=== PATIENT | female | born 2005 | race Caucasian/White ===

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

== ENCOUNTER 2024-02-23 17:12 | Emergency (ER) | payer SELFPAY ==
[2024-02-23 17:20] VITALS: BP 116/81; PULSE 119; RESP 16; TEMP 37.2; O2SAT 98
--- NOTE | 2024-02-23 17:31 | XRR_ITS ---
PROCEDURE INFORMATION: Exam: XR Chest Exam date and time: 02/23/2024 5:35 PM Age: 18 years old Clinical indication: Cough; Additional info: Cough, pleuritic pain TECHNIQUE: Imaging protocol: Radiologic exam of the chest. Views: 1 view. COMPARISON: CR XR chest 1V portable [id number] 01/08/2022 1:20 PM FINDINGS: Lungs: Unremarkable. No consolidation. Pleural spaces: Unremarkable. No pleural effusion. No pneumothorax. Heart/Mediastinum: Unremarkable. No cardiomegaly. Bones/joints: Unremarkable. XR/XR chest 1V portable [id number] IMPRESSION: No acute findings.
--- NOTE | 2024-02-23 17:33 | W.ED.GENADLT ---
Documented by User: ROGERIO Mackey 02/23/24 19:02 HPI - General Adult General: Chief complaint: General Medical Stated complaint: Cp Time Seen by Provider: 02/23/24 17:20 Source: patient Mode of arrival: ambulatory Limitations: no limitations History of Present Illness: Patient is a 18-year-old female presenting to the emergency department complaining of upper respiratory symptoms for the past 3-4 days. She states her symptoms began with runny nose and congestion, associated with a sore throat. As of yesterday she has developed a cough and some pleuritic chest pain. She does note sick contacts that have had identical symptoms. She has not taken anything for her symptoms at this point. She denies noticing any fever. She denies any shortness of breath, nausea or vomiting, or any other symptoms at this time. MD complaint: Upper respiratory symptoms Onset (ago): day(s) Associated symptoms: Deny dyspnea, headache(s), nausea, rash, palpitations or vomiting Treatments prior to arrival: none Review of Systems General: Reports: 10 or more systems reviewed and unremarkable except in HPI and below Const: Denies: fever(s), chills or fatigue Eyes: Denies: change in vision ENMT: Reports: throat pain, nasal discharge and nasal congestion; Denies: ear or mastoid pain Card: Denies: palpitations, swelling of feet/ankles or lightheadedness Resp: Reports: non-productive cough and pain on inspiration; Denies: dyspnea or wheezing GI: Denies: abdominal pain, nausea, vomiting, diarrhea or constipation : Denies: flank pain, difficulty voiding, dysuria or urinary frequency Musc: Denies: neck pain, back pain or joint pain Skin/Breast: Denies: rash Neuro: Denies: headache(s), numbness in extremities or weakness in extremities PFSH ED PFSH: Medical History Aftercare following surgery of the genitourinary system No pertinent past medical history neghx: htn,dm,thyroid,dvt/pe PCP: Dr. Ramires Surgical History H/O dilation and curettage 12/31/2021- Suction D&C, performed by Dr. Zapata at [facility] No history of previous surgery Family History Denies family history of Colon cancer Ovarian cancer Diabetes Clotting disorder Heart disease Hyperlipidemia Breast cancer Anesthesia complication Bleeding disorder Hypertension Uterine cancer Thyroid disease Stroke Social History Smoking and tobacco/nicotine status: never used tobacco/nicotine Physical Exam Const: COMMON NORMALS: no acute distress and healthy appearing GENERAL APPEARANCE: cooperative, comfortable and well developed HENMT: COMMON NORMALS: normocephalic, atraumatic, hearing grossly normal bilaterally, Normal external nose present and Normal nasal mucous membranes and turbinates present HEAD & SCALP: normal to inspection, normocephalic and atraumatic FACE & SINUS: normal facial exam and sinuses nontender NOSE: Normal external nose present, Normal nares present, No nasal polyps present and Normal nasal mucous membranes and turbinates present MOUTH: Normal oral and palatal mucosa present THROAT: posterior oropharynx normal and tonsils normal Eye: COMMON NORMALS: EOMs intact bilaterally, conjunctivae normal and normal visual frias by confrontation GENERAL EYE: appearance normal, both eyes and all related structures CONJUNCTIVA: Yes conjunctivae normal Neck/C-Spine: COMMON NORMALS: full ROM, no lymphadenopathy, supple and no meningeal signs GENERAL: Yes normal visual inspection Chest: COMMONS NORMALS: normal inspection of the chest Resp: COMMON NORMALS: normal respiratory effort and clear to auscultation bilaterally EFFORT & INSPECTION: Yes able to speak in complete sentences and Yes Actively coughing AUSCULTATION: clear to auscultation bilaterally Cardio: COMMON NORMALS: regular rate, regular rhythm, S1 normal heart sound present and S2 normal heart sound present RATE: regular rate RHYTHM: regular rhythm HEART SOUNDS: S1 normal heart sound present, S2 normal heart sound present, no gallops, no murmurs and no rubs GI: COMMON NORMALS: Soft to palpation and No hepatosplenomegaly present INSPECTION: Yes normal to inspection PALPATION: Yes Soft to palpation and Yes No hepatosplenomegaly present Extremity: COMMON NORMALS: normal to inspection, full ROM and capillary refill normal Neuro: MENINGEAL SIGNS: Yes no meningeal signs Skin: COMMON NORMALS: no rashes or lesions noted GENERAL SKIN EXAM: no rashes or lesions noted Course Vital Signs: Vital signs: Vital Signs Temperature 99.0 F 02/23/24 18:51 Pulse Rate 94 02/23/24 18:51 Respiratory Rate 16 02/23/24 18:51 Blood Pressure 103/66 02/23/24 18:51 Pulse Oximetry 99 02/23/24 18:51 Oxygen Delivery Me thod Room Air 02/23/24 17:20 MDM - General Adult Medical Decision Making Patient presented with a few days of upper respiratory symptoms, with coughing and pleuritic chest pain beginning today. Heart rate elevated on arrival, rest of physical examination was unremarkable and she had normal cardiopulmonary auscultation. Her swabs for flu, COVID, and strep were all negative. Chest x-ray unremarkable. Due to patient's reported symptoms and reported sick contacts, likely she is dealing with a viral syndrome and will treat symptomatically as she has not taken anything for symptoms at this time. Strict return precautions were given and she will follow-up with primary care otherwise. Care of this patient discussed with supervising ED physician, Dr. Zambrano, who agrees with disposition. Lab Data Radiology Impressions Chest X-Ray 02/23/24 17:31 IMPRESSION: No acute findings. Laboratory Results Influenza Type A Ag negative (Negative) 02/23/24 17:51 Influenza Type B Ag negative (Negative) 02/23/24 17:51 SARS-CoV-2 Ag (Rapid) Negative (Negative) 02/23/24 17:51 Group A Strep Rapid Negative (Negative) 02/23/24 17:51 All radiology interpretation(s) finalized by discharge Discharge Plan Discharge Patient Disposition: Home Clinical Impression: Viral syndrome Condition: Stable Prescriptions: No Action acetaminophen [Tylenol] 325 mg capsule 325 mg PO QID PRN (Reason: Pain) (DME) ASO to left See Rx Instructions .Route .MEDSUPPLY Qty: 1 0RF Rx Instructions: As directed acyclovir 800 mg tablet 800 mg PO TID norgestimate-ethinyl estradiol [Sprintec (28)] 0.25-35 mg-mcg tablet 1 tab PO DAILY Qty: 28 0RF Nexplanon 68 mg implant subdermal ibuprofen 800 mg tablet See Rx Instructions .ROUTE .COMPLEX Qty: 60 0RF Dose Instruction: TAKE 1 TABLET BY MOUTH THREE TIMES DAILY NEEDED FOR PAIN Rx Instructions: TAKE 1 TABLET BY MOUTH THREE TIMES DAILY NEEDED FOR PAIN methocarbamol 750 mg tablet 750 mg PO Q6H PRN (Reason: spasms) Qty: 20 0RF Naprosyn 500 mg tablet 500 mg PO BID PRN (Reason: pain) Qty: 20 0RF ondansetron 4 mg tablet,disintegrating 4 mg PO Q6H PRN (Reason: nausea and vomiting) Qty: 14 0RF ondansetron HCl 4 mg tablet 4 mg PO Q6H PRN (Reason: nausea and vomiting) Qty: 20 0RF Discharge Orders: Discharge ED (Routine); Ordered 02/23/24 Ordered By: Jesus Sal Discharge Diet: Usual diet Discharge Activity: Increase activity as tolerated Patient Instructions: Viral Syndrome (ED) Activity Restrictions/Additional Instructions: [id number]-[id number] cough suppressant such as dextromethorphan. Add klhw-[id number]-[id number] mucolytic such as Mucinex. Plenty of fluids and contagion precaution. Tylenol or ibuprofen for any fever. Monitor for any new or worsening symptoms and return for reevaluation. Otherwise, follow-up with primary care. Stand Alone Forms: Work/School Release Print Language: Beninese Coding Level of Care Code ED Tube Skiver for Chg Fwd Documented by User: Lamont Rivero DO 02/24/24 05:15 HPI - General Adult General: Chief complaint: General Medical Stated complaint: Cp Time Seen by Provider: 02/23/24 17:20 [facility] ED PFSH: Medical History Aftercare following surgery of the genitourinary system No pertinent past medical history neghx: htn,dm,thyroid,dvt/pe PCP: Dr. Ramires Surgical History H/O dilation and curettage 12/31/2021- Suction D&C, performed by Dr. Zapata at [facility] No history of previous surgery Family History Denies family history of Colon cancer Ovarian cancer Diabetes Clotting disorder Heart disease Hyperlipidemia Breast cancer Anesthesia complication Bleeding disorder Hypertension Uterine cancer Thyroid disease Stroke Social History Smoking and tobacco/nicotine status: never used tobacco/nicotine Course Vital Signs: Vital signs: Vital Signs Temperature 99.0 F 02/23/24 18:51 Pulse Rate 94 02/23/24 18:51 Respiratory Rate 16 02/23/24 18:51 Blood Pressure 103/66 02/23/24 18:51 Pulse Oximetry 99 02/23/24 18:51 Oxygen Delivery Me thod Room Air 02/23/24 17:20 MDM - General Adult Medical Decision Making Patient presented with a few days of upper respiratory symptoms, with coughing and pleuritic chest pain beginning today. Heart rate elevated on arrival, rest of physical examination was unremarkable and she had normal cardiopulmonary auscultation. Her swabs for flu, COVID, and strep were all negative. Chest x-ray unremarkable. Due to patient's reported symptoms and reported sick contacts, likely she is dealing with a viral syndrome and will treat symptomatically as she has not taken anything for symptoms at this time. Strict return precautions were given and she will follow-up with primary care otherwise. Care of this patient discussed with supervising ED physician, Dr. Zambrano, who agrees with disposition. Chart reviewed Lab Data Radiology Impressions Chest X-Ray 02/23/24 17:31 IMPRESSION: No acute findings. Laboratory Results Influenza Type A Ag negative (Negative) 02/23/24 17:51 Influenza Type B Ag negative (Negative) 02/23/24 17:51 SARS-CoV-2 Ag (Rapid) Negative (Negative) 02/23/24 17:51 Group A Strep Rapid Negative (Negative) 02/23/24 17:51 Discharge Plan Discharge Patient Disposition: Home Clinical Impression: Viral syndrome Condition: Stable Prescriptions: No Action acetaminophen [Tylenol] 325 mg capsule 325 mg PO QID PRN (Reason: Pain) (DME) ASO to left See Rx Instructions .Route .MEDSUPPLY Qty: 1 0RF Rx Instructions: As directed acyclovir 800 mg tablet 800 mg PO TID norgestimate-ethinyl estradiol [Sprintec (28)] 0.25-35 mg-mcg tablet 1 tab PO DAILY Qty: 28 0RF Nexplanon 68 mg implant subdermal ibuprofen 800 mg tablet See Rx Instructions .ROUTE .COMPLEX Qty: 60 0RF Dose Instruction: TAKE 1 TABLET BY MOUTH THREE TIMES DAILY NEEDED FOR PAIN Rx Instructions: TAKE 1 TABLET BY MOUTH THREE TIMES DAILY NEEDED FOR PAIN methocarbamol 750 mg tablet 750 mg PO Q6H PRN (Reason: spasms) Qty: 20 0RF Naprosyn 500 mg tablet 500 mg PO BID PRN (Reason: pain) Qty: 20 0RF ondansetron 4 mg tablet,disintegrating 4 mg PO Q6H PRN (Reason: nausea and vomiting) Qty: 14 0RF ondansetron HCl 4 mg tablet 4 mg PO Q6H PRN (Reason: nausea and vomiting) Qty: 20 0RF Discharge Orders: Discharge ED (Routine); Ordered 02/23/24 Ordered By: Jesus Sal Discharge Diet: Usual diet Discharge Activity: Increase activity as tolerated Patient Instructions: Viral Syndrome (ED) Activity Restrictions/Additional Instructions: [id number]-[id number] cough suppressant such as dextromethorphan. Add bhmw-klw-ceybgde mucolytic such as Mucinex. Plenty of fluids and contagion precaution. Tylenol or ibuprofen for any fever. Monitor for any new or worsening symptoms and return for reevaluation. Otherwise, follow-up with primary care. Stand Alone Forms: Work/School Release Print Language: Beninese Coding Level of Care Code ED Tube Skiver for Julien Sims
[2024-02-23 18:17] LABS: Rapid Strep A Test Negative (Negative)
[2024-02-23 18:27] LABS: Influenza A by IFA negative (Negative); Influenza B by IFA negative (Negative)
[2024-02-23 18:44] VITALS: BP 103/66; PULSE 94; RESP 16; O2SAT 99
[2024-02-23 18:51] VITALS: BP 103/66; PULSE 94; RESP 16; TEMP 37.2; O2SAT 99
[2024-02-23 19:08] LABS: SARS Covid-2 Antigen Negative (Negative)
== END 2024-02-23 18:52 | disposition home or self-care (01) ==
PROVIDERS: Emergency Provider Physician Assistant
DX: B34.9 Viral infection, unspecified (principal); Z11.52 Encounter for screening for COVID-19
CPT/HCPCS: 71045; 87081; 87426; 87804; 87880; 99284

== ENCOUNTER → 2024-03-01 11:35 | Outpatient (BNVA) | payer OTHER, SELFPAY | PROVIDERS: Visit Provider Nurse Practitioner Women's Health | DX: Z30.9 Encounter for contraceptive management, unspecified (principal) | CPT/HCPCS: 81025 ==

== ENCOUNTER 2024-04-12 03:40 | Emergency (ER) | payer OTHER, SELFPAY ==
[2024-04-12] VITALS (23 sets, daily range): BP systolic 0–205; BP diastolic 0–178; PULSE 0–151; RESP 0–103; O2SAT 0–100; BMI 21.9
[2024-04-12 03:50] LABS: Glucose Point of Care 240 mg/dL (70-110)
[2024-04-12 03:55] LABS: ABG PCO2 63.5 mmHg (35-45); ABG PH Result 7.02 (7.35-7.45); Arterial Blood Gas Hematocrit 19.7 % (37-47); Base Excess ABG -13.3 mmol/L (-2.0-2.0); Blood Gas Operator Identificat JDB; Blood Gas Sample Site Not specified; Blood Gas Sample Type Venous; Carboxyhemoglobin 0.8 %THgb (0.4-20.1); HCO3 ABG 16.5 mmol/L (22-26); HGB O2 Sat 51.9 % (95-100); Methemoglobin 0.4 % (0.4-1.5); Oxygen Device AMBU; Oxygen Saturation ABG 52.5; PO2 ABG 41.7 mmHg (80.0-100.0); PO2 FiO2 Ratio Arterial Blood 41; Potassium Level - ABG 3.9 mmol/L (3.5-5.0); Total Hemoglobin 6.4 g/dL (12-16)
[2024-04-12] MEDS: norepinephrine 4 MG/250 ML BAG 45 MG IV (04:09)
[2024-04-12] MEDS: EPINEPHrine 2.5 MG in sodium chloride 0.9% 250 ML 48.48 MG IV (04:18)
--- NOTE | 2024-04-12 04:56 | PC.NURSE ---
0341-EPI 0342-no pulse, 1 amp bicarb 0343-no pulse 0344-EPI 0346-149 PEA, BP 82/--,FS 240 0347-EPI 0348-HR 149 o2 100%, 101/79, ED physician at bedside with US 0352- BP 85/58, O2 sat 98% HR 149 0355-HR 127, BP 46/35, IV rapid infuser 1liter NS 0357- intubated 0358-norepi started at 12mcg 0400- HR 52, O2 100%, 1 amp bicarb 0402- pulse check, HR 123, O2 sat 98%, BP 205/178, 1st bag PRBC started via rapid infuser 0404-needle decompression 0407-EPI 0409-compressions started, epi drip at 8mcg 0410-HR 85,o2 sat 85%, BP 122/75 0412-HR 114, o2 100%, BP 122/75 0417- epi drip at 15mcg/min, 2nd bag PRBC started via rapid infuser 0420 - levophed drip at 20mcg 0421- compressions started 0423 -PEA 0424- EPI 0426- HR 121, o2 sat 100%, US showing no cardiac activity 0433-PEA 0436- time of called
--- NOTE | 2024-04-12 05:30 | PC.NURSE ---
MTS contacted at [id number]
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
[2024-04-12 05:36] LABS: Alcohol Level < 10 mg/dL (0-10)
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
--- NOTE | 2024-04-12 06:40 | PC.NURSE ---
epinephrine drip rates and levophed rates and their changes were all ordered verbally by MD at bedside.
--- NOTE | 2024-04-12 06:42 | PC.NURSE ---
MTS declined due to hemodilution. [facility] [id number] [place] states pt is still a potential donor.
== END 2024-04-12 06:47 | disposition expired ==
PROVIDERS: Emergency Provider Emergency Medicine
DX: I46.9 Cardiac arrest, cause unspecified (principal); S22.42XA Multiple fractures of ribs, left side, initial encounter for closed fracture; S27.0XXA Traumatic pneumothorax, initial encounter; S02.91XA Unspecified fracture of skull, initial encounter for closed fracture; V89.2XXA Person injured in unspecified motor-vehicle accident, traffic, initial encounter
CPT/HCPCS: 31500; 32551; 36416; 80051; 80307; 82330; 82805; 82962; 86900; 86920; 96365; 96367; 99291; 99292; J0171; J7050; P9016